=== PATIENT | female | born 1960 | race African-American/Black ===

== ENCOUNTER 2018-07-22 10:43 | Emergency (ER) | payer SELFPAY ==
[~2018-07-22] VITALS: Ht 157.5 cm; Wt 112.0 kg
[2018-07-22] MEDS ORDERED: ALBUTEROL (0.083%) 2.5MG/3ML NEB HHN STA (11:11)
[2018-07-22] MEDS ORDERED: PREDNISONE 20MG TABLET PO STA (11:11)
[2018-07-22] MEDS ORDERED: IPRATROPIUM BROMIDE (0.02%) 0.5MG/2.5ML NEB HHN STA (11:11)
[2018-07-22] MEDS ORDERED: ALBUTEROL (0.5%) 2.5MG/0.5ML NEB HHN ONE (11:29)
[2018-07-22 13:10] VITALS: BP 139/92
== END 2018-07-22 20:36 | disposition home or self-care (01) ==
LOC: ER 20:30
DX: J44.1 Chronic obstructive pulmonary disease with (acute) exacerbation (principal); J20.9 Acute bronchitis, unspecified; J44.0 Chronic obstructive pulmonary disease with (acute) lower respiratory infection; F17.200 Nicotine dependence, unspecified, uncomplicated
CPT/HCPCS: 71045; 87804; 94640; 99284; J7512; J7611